=== PATIENT | female | born 1980 | race Caucasian/White ===

== ENCOUNTER 2019-02-06 12:31 | Emergency (ER) | payer SELFPAY ==
[~2019-02-06] VITALS: Ht 175.3 cm; Wt 83.9 kg
[2019-02-06 12:40] VITALS: BP 128/69
== END 2019-02-06 15:25 | disposition home or self-care (01) ==
LOC: ER 12:37
DX: S05.12XA Contusion of eyeball and orbital tissues, left eye, initial encounter (principal); R51 Headache; R42 Dizziness and giddiness; M54.2 Cervicalgia; F41.9 Anxiety disorder, unspecified; V49.59XA Passenger injured in collision with other motor vehicles in traffic accident, initial encounter; Y93.89 Activity, other specified; Y92.488 Other paved roadways as the place of occurrence of the external cause; Y99.8 Other external cause status
CPT/HCPCS: 70450-TC; 72125-TC

== ENCOUNTER 2019-02-18 22:22 | Emergency (ER) | payer BC ==
[~2019-02-18] VITALS: Ht 175.3 cm; Wt 83.9 kg
[2019-02-18 22:27] VITALS: BP 144/71
--- NOTE | 2019-02-18 22:45 | NUR ---
BIBSELF FROM HOME. AAOX4. PT CRYING AND ANXIOUS. BREATHING EVEN AND UNLABORED. C/O PAINFUL SWALLOWING AND SORETHROAT X 4 DAYS. DESCRIBES PAIN SHARP 10/10. PT ALSO COMPLAINT OF THROBBING HEADACHE AND NASAL CONGESTION. AIRWAY PATENT. TO ER BED 11. MD AT BEDSIDE.
[2019-02-18] MEDS ORDERED: IBUPROFEN 400 MG TABLET ONE (23:24)
--- NOTE | 2019-02-18 23:27 | NUR ---
PT CLEARED BY . PT BEING GIVEN MD SHE REFUSED THE MEDICATION. PT WALKED OUT PRIOR TO GIVEN DISCHARGE INSTRUCTION. MD MADE AWARE. PT WASNT ABLE TO SIGN DC AND DIDNOT RECEIVED ACI.
[2019-02-18] MEDS ORDERED: IBUPROFEN 400 MG TABLET PO ONE (23:30)
== END 2019-02-18 23:30 | disposition home or self-care (01) ==
LOC: ER 22:26
DX: J02.8 Acute pharyngitis due to other specified organisms (principal); F41.9 Anxiety disorder, unspecified; F32.9 Major depressive disorder, single episode, unspecified
CPT/HCPCS: 71045-TC; 86403-TC; 87070-TC